=== PATIENT | female | born 1990 | race Caucasian/White ===

== ENCOUNTER 2024-08-21 14:16 | Outpatient (CLI) | payer BC, SELFPAY ==
[2024-08-24 12:37] LABS: HPV Source Cervix; HPV, High Risk by TMA Not Detected
== END 2024-08-21 14:17 | disposition home or self-care (01) ==
PROVIDERS: Visit Provider Registered Nurse
DX: Z12.4 Encounter for screening for malignant neoplasm of cervix (principal); Z11.51 Encounter for screening for human papillomavirus (HPV)
CPT/HCPCS: 87624; 87625; 88141; 88142

== ENCOUNTER 2025-02-11 09:18 | Emergency (ER) | payer BC, SELFPAY ==
[2025-02-11 09:21] VITALS: BP 161/84; PULSE 77; RESP 18; TEMP 36.3; O2SAT 97; BMI 38.0
--- NOTE | 2025-02-11 09:33 | ED_ITS ---
HPI - Female Genitourinary General Date Seen: 02/11/25 Chief complaint: Vaginal Bleeding Stated complaint: 7 weeks , bleeding Time Seen by Provider: 02/11/25 09:33 Source: patient and RN notes reviewed Mode of arrival: ambulatory Limitations: no limitations History of Present Illness HPI Narrative: Maddi is a very pleasant 34-year-old female with history of 1 EAB, 1 spontaneous miscarriage at approximately 6 weeks who presents today to the emergency room with vaginal spotting and lower abdominal cramping. Patient notes the onset of the symptoms approximately 48 hours ago with just a small amount of spotting. Cramping started yesterday. She is not short of breath or lightheaded. She has not passed a large amount of blood or clots. She is otherwise healthy and denies any cough cold congestion or fever. No personal history of bleeding disorders, clotting disorders. She is seen by our clinic. Related Data Home Medications ?Medication ?Instructions ?Recorded ?Confirmed No Known Home Medications 08/21/2401/27 Allergies Allergy/AdvReac Type Severity Reaction Status Date / Time No Known Drug Allergies Allergy Verified 02/11/25 16:15 Review of Systems Status of ROS: Reports: 6 or more systems reviewed and unremarkable except as noted in History and below Const: Denies: fever or chills ENMT: Denies: nasal congestion Cardio: Denies: chest pain or shortness of breath with exertion Resp: Denies: shortness of breath or cough GI: Reports: abdominal pain; Denies: nausea or vomiting : Denies: painful urination Musculo: Denies: back pain PFSH PFSH Family History Aunt Alcohol dependence Uncle Alcohol dependence Other Diabetes Social History Narrative: Property management. Bachelor's degree. Tobacco use and marijuana use. Exercises once per week. What is your current living situation?: I presently have a place to live Problems where you live: no known problems In the past 12 months, utilities in danger of being shut off: no In past 12 months, lack of transportation kept you from medical appts, meetings, work, or getting things needed for daily living: no In the past 12 mos, have been you worried that your food would run out before you had money to buy more?: never true In the past 12 mos, the food you bought just didn't last and you didn't have money to buy more?: never true How often does anyone, including family, friends and others, physically hurt you : never How often does anyone, including family, friends and others, insult or talk down to you: never How often does anyone, including family, friends and others, threaten you with harm: never How often does anyone, including family, friends and others, scream or curse at you: never Exam Narrative: Exam Narrative: Alert and oriented. Very pleasant woman. External ears eyes nose clear. Heart with regular rate and rhythm lungs are clear. Abdomen is soft. No significant tenderness elicited. No CVA tenderness with percussion. Ambulatory and moving all extremities without difficulty. Const: Vital Signs, click to edit/add: Vital Signs - 24 hr 02/11/25 09:21 02/11/25 11:31 Temperature 97.3 F L Pulse Rate [Right Pulse Oximeter] 77 68 Respiratory Rate 18 20 Blood Pressure [Ri ght Upper Arm] 161/84 H 142/65 H Pulse Oximetry 97 Oxygen Delivery Me thod Room Air Documenting provider has reviewed patient's vital signs: yes Course Course ED Course: LMP was December 22 which places patient at 7+ 2 weeks with in the EDC of 09/29/2025. At this time will place IV as we will be doing a blood draw. CBC, quantitative hCG and urinalysis ordered. Will also order ultrasound. Differential diagnosis includes bleeding in , UTI, threatened miscarriage. Consultations Consultation #1: I did have the pleasure of speaking with , OBGYN design studio consultant. At this time given elective AB medically induced, 2nd with spontaneous AB, recommending RhoGAM as long as she is Rh negative and antibody screen is negative. Vital Signs Vital signs: Initial Vital Signs Temperature 97.3 F L 02/11/25 09:21 Temperature Source Temporal Artery Scan 02/11/25 09:21 Pulse Rate 77 02/11/25 09:21 Pulse Rhythm Regular 02/11/25 09:21 Pulse Strength 3+ Normal 02/11/25 09:21 Respiratory Rate 18 02/11/25 09:21 Blood Pressure 161/84 H 02/11/25 09:21 Blood Pressure Mean 109 H 02/11/25 09:21 Blood Pressure Position Sitting 02/11/25 09:21 Pulse Oximetry 97 02/11/25 09:21 Oxygen Delivery Method Room Air 02/11/25 09:21 Vital Signs Temperature 97.3 F L 02/11/25 09:21 Pulse Rate 77 02/11/25 09:21 Respiratory Rate 18 02/11/25 09:21 Blood Pressure 161/84 H 02/11/25 09:21 Pulse Oximetry 97 02/11/25 09:21 Oxygen Delivery Method Room Air 02/11/25 09:21 Temperature 97.3 F L 02/11/25 09:21 Pulse Rate 68 02/11/25 11:31 Respiratory Rate 20 02/11/25 11:31 Blood Pressure 142/65 H 02/11/25 11:31 Pulse Oximetry 97 02/11/25 09:21 Oxygen Delivery Method Room Air 02/11/25 09:21 MDM - Female Genitourinary MDM Narrative Medical decision making narrative: 1. Vaginal bleeding in early -ultrasound shows 5 week 6 day with faint heartbeat. Recommendation is for additional ultrasound in 3-5 days. Patient currently has follow-up already scheduled for SaturdayFebruary 15. Did talk about possibility of increased bleeding and she should return for fever, shortness of breath, lightheadedness if this would occur. HCG almost 9000 today. CBC reassuring. Patient given picture of the intrauterine . Had the pleasure of speaking to our optometrist design studio consultant who does recommend a micro dose of RhoGAM if she is Rh negative given previous pregnancies. Will discharge patient while this is pending. Addendum: Patient had blood type come back as a negative. Did an antibody screen which was negative. Therefore her optometrist design studio consultant patient received 50 mcg of RhoGAM upon her return to the ER. 2. [id number] for worsening symptoms. Especially significant bleeding vomiting fever and as needed. Did speak to patient that this could represent very early stages of miscarriage but at this time the does appear to be a heartbeat and she does have an intrauterine . Note laboratory values CBC reassuring in urinalysis without evidence of UTI. Medical Records Attestation: I reviewed the patient's medical records. Lab Data Attestation: I reviewed the patient's lab results. Labs: Lab Results 02/11/25 02/11/25 02/11/25 Range/Units 09:35 09:55 11:25 WBC 6.51 (4.50-11.00) K/uL RBC 4.70 (4.00-5.20) m/uL Hgb 13.1 (12.0-16.0) gm/dL Hct 39.7 (33.0-51.0) % MCV 85 (80-100) fL MCH 28 (26-34) pg MCHC 33 (32-36) gm/dL RDW Coeff of [place] 13.1 (11.5-15.5) % Plt Count 232 (140-440) K/uL Neut % (Auto) 60.7 (42.0-72.0) % Lymph % (Auto) 27.0 (20-44) % [place] % (Auto) 10.9 (0.0-11.0) % Eos % (Auto) 0.9 (0.0-7.0) % Baso % (Auto) 0.3 (0.0-3.0) % Neut # (Auto) 3.95 (1.7-7.0) K/uL Lymph # (Auto) 1.76 (0.90-2.90) K/uL [place] # (Auto) 0.70 (0.00-0.90) K/UL Eos # (Auto) 0.06 (0.00-0.50) K/uL Baso # (Auto) 0.02 (0.00-0.30) K/uL Abs Immat Gran (auto) 0.01 (0.00-0.30) K/uL Imm/Tot Granulo (auto) 0.2 % HCG, Quant 8861.10 mIU/mL Urine Color Yellow (Yellow) Urine Appearance Clear (Clear) Urine pH 6.0 (5.0-8.5) Ur Specific [place] <= 1.005 (1.000-1.030) Urine Protein Negative (Negative) Urine Glucose (UA) Negative (Negative) Urine Ketones Negative (Negative) Urine Blood Negative (Negative) Urine Nitrite Negative (Negative) Urine Bilirubin Negative (Negative) Urine Urobilinogen 0.2 (0.2-1.0) Ur Leukocyte Esterase Negative (Negative) Urine RBC 0-2 (0-2) Urine WBC 0-2 (0-5) Ur Squamous Epith Cells Few (None-Few) Urine Bacteria Few A (None) Blood Type A Negative Antibody Screen NEGATIVE Imaging Data US - abdomen: Attestation: I have reviewed the pertinent imaging results. Radiologist's impression: Uterus is normal in size and attenuation. A right mid uterine subserosal fibroid is identified measuring 1.7 x 1.3 x 1.3 cm. Intrauterine gestation: Single. heart activity (bpm): Faintly visualized, too small to measure [place]-rump length: 0.3 cm.. Estimated ultrasound age: 5 weeks 6 day. SARWAT by ultrasound: 10/08/2025. Yolk sac: Normal. Perigestational hemorrhage: None. Ovaries and adnexa: Unremarkable. Suspicious pelvic fluid collections: None. IMPRESSION: 1. Single viable intrauterine with estimated gestational age of 5 weeks 6 days and SARWAT of 10/08/2025. 2. Faint visualization of cardiac activity. Follow-up ultrasound in 3-5 days should be considered. Discharge Plan Discharge Clinical Impression: Vaginal bleeding, Early stage of Patient Disposition: Home, Self-Care Condition: Unchanged Additional Instructions: Follow-up as scheduled on SaturdayFebruary 15. Return as needed for increased bleeding, shortness of breath, fever an onset of new symptoms. I will call you if your blood type is negative and you are in need of RhoGAM injection. Prescriptions: No Action No Known Home Medications Follow Up/Referrals: Provider,Not a Local [Primary Care Provider, Family Practice] Stand Alone Forms: [employer] Info Instructions
--- NOTE | 2025-02-11 09:40 | CRLHL7_ITS ---
For Patients: As a result of the Century Cures Act, medical imaging exams and procedure reports are released immediately into your electronic medical record. You may view this report before your referring provider. If you have questions, please contact your health care provider. INDICATION: Bleeding, early TECHNIQUE: Ultrasound OB pelvis transabdominal and transvaginal. Real-time hewitt-scale imaging of the pelvis was performed. COMPARISON: None. FINDINGS: Uterus is normal in size and attenuation. A right mid uterine subserosal fibroid is identified measuring 1.7 x 1.3 x 1.3 cm. Intrauterine gestation: Single. heart activity (bpm): Faintly visualized, too small to measure [place]-rump length: 0.3 cm.. Estimated ultrasound age: 5 weeks 6 day. SARWAT by ultrasound: 10/08/2025. Yolk sac: Normal. Perigestational hemorrhage: None. Ovaries and adnexa: Unremarkable. Suspicious pelvic fluid collections: None. IMPRESSION: 1. Single viable intrauterine with estimated gestational age of 5 weeks 6 days and SARWAT of 10/08/2025. 2. Faint visualization of cardiac activity. Follow-up ultrasound in 3-5 days should be considered. Dictated by Jillian Curtis MD @ 02/11/2025 10:35:01 AM (Electronically Signed)
[2025-02-11 09:41] LABS: Appearance Urine Clear (Clear)
[2025-02-11 10:07] LABS: Hematocrit* 39.7 % (33.0-51.0); Hemoglobin* 13.1 gm/dL (12.0-16.0); Immature Granulocytes Abs Auto 0.01 K/uL (0.00-0.30); Immature Granulocytes Pct Auto 0.2 %; Lymphocytes Absolute Auto 1.76 K/uL (0.90-2.90); Mean Corpuscular HGB Conc 33 gm/dL (32-36); Mean Corpuscular Hemoglobin 28 pg (26-34); Mean Corpuscular Volume 85 fL (80-100); RDW Coefficient of Variation % 13.1 % (11.5-15.5); Red Blood Count* 4.70 m/uL (4.00-5.20); White Blood Count* 6.51 K/uL (4.50-11.00)
[2025-02-11 10:24] LABS: Slide Review Reflex No
[2025-02-11 10:45] LABS: HCG Quantitative* 8861.10 mIU/mL
[2025-02-11 11:31] VITALS: BP 142/65; PULSE 68; RESP 20
--- NOTE | 2025-02-11 16:38 | ED.NURSE ---
50mcg administered per MD Roy.
== END 2025-02-11 11:32 | disposition home or self-care (01) ==
PROVIDERS: Emergency Provider Family Medicine
DX: O26.851 Spotting complicating pregnancy, first trimester (principal); Z3A.01 Less than 8 weeks gestation of pregnancy; Z29.13 Encounter for prophylactic Rho(D) immune globulin
CPT/HCPCS: 36415; 76817; 81001; 84702; 85025; 86850; 86900; 86901; 87086; 99284; 99285; J2791

== ENCOUNTER 2025-02-15 13:45 | Outpatient (CLI) | payer BC, SELFPAY ==
--- NOTE | 2025-02-15 14:00 | CRLHL7_ITS ---
For Patients: As a result of the Century Cures Act, medical imaging exams and procedure reports are released immediately into your electronic medical record. You may view this report before your referring provider. If you have questions, please contact your health care provider. OB ULTRASOUND INDICATION: Dating and viability. TECHNIQUE: Real time grayscale imaging of the fetus was performed. Transvaginal. Transvaginal imaging performed to better demonstrate the endometrium and ovaries. LMP: 12/22/2024. SARWAT by LMP: 09/28/2025. GA: 7 w, 6 d. Previous US: Yes 02/11/2025. SARWAT by US: 10/08/2025. GA: 5 w, 6 d. CRL: 0.3 cm. 5 w 6 d. SARWAT: 10/12/2025. FHR: ? flicker vs maternal movement. Very slow. Gestational sac: 1.4 cm. <10%. Yolk sac: 2.2 mm. Right ovary: N/V. Left ovary: 3.1 x 1.8 x 1.8 cm. CL. IMPRESSION: Intrauterine gestational sac is present containing a pole, which measures 2.9 mm, 5 weeks 6 days, not significantly changed since the prior study. A small flicker of heat tone may be present on the cine clip, although a measurable feta heart rate is not present. A subchorionic hemorrhage is noted which measures 1.7 x 0.5 x 1.0 cm. Corpus luteal cyst left ovary. Right ovary not visualized. There is an uterine fibroid present posteriorly which measures 1.6 x 1.2 x 1.5 cm. Follow-up recommended in at least 10 days for further evaluation. Lamont Garvin M.D. Diagnostic Radiologist [email or web address]/Dictated by: Lamont Garvin MD @ 02/15/2025 6:02:00 PM (Electronically Signed)
== END 2025-02-15 13:46 | disposition home or self-care (01) ==
LOC: US 13:46
PROVIDERS: Visit Provider Physician Assistant
DX: Z34.91 Encounter for supervision of normal pregnancy, unspecified, first trimester (principal); Z3A.01 Less than 8 weeks gestation of pregnancy
CPT/HCPCS: 76817

== ENCOUNTER 2025-03-15 13:57 | Outpatient (CLI) | payer BC, SELFPAY | END 2025-03-15 13:58 | disposition home or self-care (01) | LOC: NFLDREF 03-19 11:48 | PROVIDERS: Visit Provider Physician Assistant | DX: Z32.01 Encounter for pregnancy test, result positive (principal) | CPT/HCPCS: 84702 ==